=== PATIENT | male | born 1975 | race Caucasian/White ===

== ENCOUNTER 2022-10-25 13:46 | Inpatient (IN) | payer OTHER ==
[2022-10-25 14:17] VITALS: BMI 23.8
[2022-10-25] MEDS ORDERED: guaiFENesin 600 MG TABLET.ER (FP) PO PRN (18:58)
[2022-10-25] MEDS ORDERED: BISMUTH SUBSALICYLATE 524 MG/30 ML PO PRN (18:58)
[2022-10-25] MEDS ORDERED: POLYETHYLENE GLYCOL (HEALTHYLAX) 3350 17 GM PACKET PO PRN (18:58)
[2022-10-25] MEDS ORDERED: LORazepam 1 MG TABLET PO PRN (18:58)
[2022-10-25] MEDS ORDERED: ACETAMINOPHEN 325 MG TABLET (FP) PO PRN (18:58)
[2022-10-25] MEDS ORDERED: hydrOXYzine PAMOATE 25 MG CAPSULE (FP) PO PRN (18:58)
[2022-10-25] MEDS ORDERED: BENZOCAINE/MENTHOL (CHLORASEPTIC ) LOZENGE MM PRN (18:58)
[2022-10-25] MEDS ORDERED: ONDANSETRON *ODT* 4 MG TABLET SL PRN (18:58)
[2022-10-25] MEDS ORDERED: BENZONATATE 200 MG CAPSULE PO PRN (18:58)
[2022-10-25] MEDS ORDERED: NALOXONE HCL (KLOXXADO) 8 MG SPRAY NS PRN (18:58)
[2022-10-25] MEDS ORDERED: NALOXONE HCL 0.4 MG/ML VIAL IM PRN (18:58)
[2022-10-25] MEDS ORDERED: LOPERAMIDE HCL 2 MG CAPSULE PO PRN (18:58)
[2022-10-25] MEDS ORDERED: DICYCLOMINE HCL 10 MG CAPSULE PO PRN (18:58)
[2022-10-25] MEDS ORDERED: IBUPROFEN 400 MG TABLET (FP) PO PRN (18:58)
[2022-10-25] MEDS ORDERED: MAG HYDROX/AL HYDROX/SIMETH 30 ML UNIT-DOSE CUP PO PRN (18:58)
[2022-10-25] MEDS ORDERED: MAGNESIUM HYDROX 2400MG/30ML ORAL SUSPENSION 30 ML CUP PO PRN (18:58)
[2022-10-25] MEDS ORDERED: LORazepam 1 MG TABLET ONE (19:20)
[2022-10-25] MEDS: MELATONIN 5 MG TABLETS PO SCH (22:38)
[2022-10-25] MEDS: LORazepam 2 MG TABLET PO SCH (23:36)
[2022-10-25] MEDS: THIAMINE HCL 100 MG TABLET (FP) PO SCH (23:37)
[2022-10-26] MEDS: LORazepam 2 MG TABLET PO SCH ×4 (05:47→22:14)
[2022-10-26] MEDS ORDERED: methaDONE HCL 10 MG TABLET PO SCH (08:45)
[2022-10-26] MEDS ORDERED: methaDONE 40 MG, methaDONE 30 MG PO ONE (09:15)
[2022-10-26] MEDS: ASPIRIN 81 MG CHEWABLE TABLETS PO SCH (10:09)
[2022-10-26] MEDS: PRENATAL VITAMINS W/ FOLIC ACID TABLET (FP) PO SCH (10:09)
[2022-10-26] MEDS: METHOCARBAMOL 500 MG TABLET PO PRN (14:36)
[2022-10-26] MEDS: IBUPROFEN 600 MG TABLET (FP) PO PRN (14:37)
[2022-10-26] MEDS: MELATONIN 5 MG TABLETS PO SCH (22:14)
[2022-10-26] MEDS: THIAMINE HCL 100 MG TABLET (FP) PO SCH (22:14)
[2022-10-27] MEDS: methaDONE 40 MG, methaDONE 30 MG PO SCH (05:40)
[2022-10-27] MEDS: LORazepam 1 MG TABLET PO SCH ×4 (05:40→22:13)
[2022-10-27] MEDS: PRENATAL VITAMINS W/ FOLIC ACID TABLET (FP) PO SCH (10:26)
[2022-10-27] MEDS: ASPIRIN 81 MG CHEWABLE TABLETS PO SCH (10:26)
[2022-10-27] MEDS: METHOCARBAMOL 500 MG TABLET PO PRN (10:27)
[2022-10-27] MEDS: IBUPROFEN 600 MG TABLET (FP) PO PRN (17:29)
[2022-10-27] MEDS ORDERED: METHOCARBAMOL 500 MG TABLET PO PRN (19:22)
[2022-10-27] MEDS ORDERED: NAPROXEN 500 MG TABLET PO PRN (19:23)
[2022-10-27] MEDS: MIRTAZAPINE 15 MG TABLET (FP) PO SCH (22:12)
[2022-10-27] MEDS: traZODone HCL 100 MG TABLET (FP) PO SCH (22:12)
[2022-10-27] MEDS: THIAMINE HCL 100 MG TABLET (FP) PO SCH (22:12)
[2022-10-27] MEDS: SENNOSIDES 8.6MG TABLET (FP) PO SCH (22:12)
[2022-10-28] MEDS ORDERED: LORazepam 0.5 MG TABLET PO PRN
[2022-10-28] MEDS: LORazepam 0.5 MG TABLET PO SCH ×4 (05:54→22:13)
[2022-10-28] MEDS: methaDONE 40 MG, methaDONE 30 MG PO SCH (05:55)
[2022-10-28] MEDS: ASPIRIN 81 MG CHEWABLE TABLETS PO SCH (10:02)
[2022-10-28] MEDS: PRENATAL VITAMINS W/ FOLIC ACID TABLET (FP) PO SCH (10:02)
[2022-10-28] MEDS: SENNOSIDES 8.6MG TABLET (FP) PO SCH ×2 (10:04→22:13)
[2022-10-28] MEDS: MIRTAZAPINE 15 MG TABLET (FP) PO SCH (22:12)
[2022-10-28] MEDS: traZODone HCL 100 MG TABLET (FP) PO SCH (22:13)
[2022-10-28] MEDS: THIAMINE HCL 100 MG TABLET (FP) PO SCH (22:13)
[2022-10-29] MEDS ORDERED: LORazepam 0.5 MG TABLET PO ONE (05:00)
[2022-10-29] MEDS: methaDONE 40 MG, methaDONE 30 MG PO SCH (05:57)
[2022-10-29 09:45] VITALS: BP 115/79; PULSE 82; RESP 18; TEMP 97.3
[2022-10-29] MEDS: ASPIRIN 81 MG CHEWABLE TABLETS PO SCH (10:06)
[2022-10-29] MEDS: PRENATAL VITAMINS W/ FOLIC ACID TABLET (FP) PO SCH (10:06)
[2022-10-29] MEDS: SENNOSIDES 8.6MG TABLET (FP) PO SCH (10:07)
== END 2022-10-29 10:40 | disposition home or self-care (01) | DRG 773 ==
LOC: YASAS 13:46 → Y3N 19:07
PROVIDERS: ADMIT Allergy & Immunology; ATTEND Allergy & Immunology
PROC: HZ2ZZZZ Detoxification Services for Substance Abuse Treatment (ICD-10-PCS; principal; 2022-10-25)
DX: F10.230 Alcohol dependence with withdrawal, uncomplicated (principal); F11.20 Opioid dependence, uncomplicated; F19.282 Other psychoactive substance dependence with psychoactive substance-induced sleep disorder; F19.24 Other psychoactive substance dependence with psychoactive substance-induced mood disorder; F17.210 Nicotine dependence, cigarettes, uncomplicated; C81.90 Hodgkin lymphoma, unspecified, unspecified site; E78.5 Hyperlipidemia, unspecified; I10 Essential (primary) hypertension; K59.00 Constipation, unspecified; M54.50 Low back pain, unspecified; G89.29 Other chronic pain; Z56.0 Unemployment, unspecified; Z59.00 Homelessness unspecified
CPT/HCPCS: 87635

== ENCOUNTER 2023-04-12 14:44 | Inpatient (IN) | payer OTHER ==
[2023-04-12 15:15] VITALS: BMI 23.8
[2023-04-12] MEDS ORDERED: LOPERAMIDE HCL 2 MG CAPSULE PO PRN (16:45)
[2023-04-12] MEDS ORDERED: BISMUTH SUBSALICYLATE 524 MG/30 ML PO PRN (16:45)
[2023-04-12] MEDS ORDERED: DICYCLOMINE HCL 10 MG CAPSULE PO PRN (16:45)
[2023-04-12] MEDS ORDERED: BENZOCAINE/MENTHOL (CHLORASEPTIC ) LOZENGE MM PRN (16:45)
[2023-04-12] MEDS ORDERED: guaiFENesin 600 MG TABLET.ER (FP) PO PRN (16:45)
[2023-04-12] MEDS ORDERED: POLYETHYLENE GLYCOL (HEALTHYLAX) 3350 17 GM PACKET PO PRN (16:45)
[2023-04-12] MEDS ORDERED: ACETAMINOPHEN 325 MG TABLET (FP) PO PRN (16:45)
[2023-04-12] MEDS ORDERED: BENZONATATE 200 MG CAPSULE PO PRN (16:45)
[2023-04-12] MEDS ORDERED: IBUPROFEN 400 MG TABLET (FP) PO PRN (16:45)
[2023-04-12] MEDS ORDERED: NALOXONE HCL (KLOXXADO) 8 MG SPRAY NS PRN (16:45)
[2023-04-12] MEDS ORDERED: MAG HYDROX/AL HYDROX/SIMETH 30 ML UNIT-DOSE CUP PO PRN (16:45)
[2023-04-12] MEDS ORDERED: NICOTINE POLACRILEX 2 MG GUM BUC PRN (16:45)
[2023-04-12] MEDS ORDERED: MAGNESIUM HYDROX 2400MG/30ML ORAL SUSPENSION 30 ML CUP PO PRN (16:45)
[2023-04-12] MEDS ORDERED: P-EPHED 60MG/TRIPROLIDI 2.5MG TABLET PO PRN (16:45)
[2023-04-12] MEDS ORDERED: NALOXONE HCL 0.4 MG/ML VIAL IM PRN (16:45)
[2023-04-12] MEDS: hydrOXYzine PAMOATE 25 MG CAPSULE (FP) PO PRN (19:32)
[2023-04-12] MEDS ORDERED: MELATONIN 5 MG TABLETS PO SCH (22:00)
[2023-04-12] MEDS: THIAMINE HCL 100 MG TABLET (FP) PO SCH (22:37)
[2023-04-13] MEDS ORDERED: LORazepam 1 MG TABLET PO PRN (09:14)
[2023-04-13] MEDS ORDERED: cloNIDine HCL 0.1 MG TABLET PO ONE (09:35)
[2023-04-13] MEDS: ASPIRIN 81 MG CHEWABLE TABLETS PO SCH (09:38)
[2023-04-13] MEDS: PRENATAL VITAMINS W/ FOLIC ACID TABLET (FP) PO SCH (09:39)
[2023-04-13] MEDS ORDERED: methaDONE HCL 40 MG DISPERSABLE TABLET PO ONE (09:45)
[2023-04-13] MEDS: LORazepam 2 MG TABLET PO SCH ×3 (10:46→22:20)
[2023-04-13 15:31] LABS: HIV INTERPRETATION NEGATIVE (NEGATIVE)
[2023-04-13] MEDS: MIRTAZAPINE 15 MG TABLET (FP) PO SCH (22:17)
[2023-04-13] MEDS: THIAMINE HCL 100 MG TABLET (FP) PO SCH (22:17)
[2023-04-13] MEDS: traZODone HCL 100 MG TABLET (FP) PO SCH (22:17)
[2023-04-13] MEDS: IBUPROFEN 600 MG TABLET (FP) PO PRN (22:18)
[2023-04-14] MEDS: ONDANSETRON *ODT* 4 MG TABLET SL PRN (05:06)
[2023-04-14] MEDS: methaDONE HCL 40 MG DISPERSABLE TABLET PO SCH (05:07)
[2023-04-14] MEDS: LORazepam 2 MG TABLET PO SCH ×4 (05:07→23:12)
[2023-04-14] MEDS: TRIMETHOBENZAMIDE HCL 200MG/2ML INJ IM PRN (06:49)
[2023-04-14] MEDS: PRENATAL VITAMINS W/ FOLIC ACID TABLET (FP) PO SCH (10:05)
[2023-04-14] MEDS: amLODIPine BESYLATE 10 MG TABLET (FP) PO SCH (10:05)
[2023-04-14] MEDS: ASPIRIN 81 MG CHEWABLE TABLETS PO SCH (10:05)
[2023-04-14] MEDS ORDERED: TRIMETHOBENZAMIDE HCL 200MG/2ML INJ IM ONE (10:48)
[2023-04-14] MEDS ORDERED: methaDONE HCL 40 MG DISPERSABLE TABLET PO ONE (11:38)
[2023-04-14 15:25] LABS: HEMATOCRIT 30.7 % (35.4-49); HEMOGLOBIN 9.8 GM/dL (11.7-16.9); MCH 23.2 pg (25.7-33.7); MCHC 31.8 g/dl (32.0-35.9); MEAN CELL VOLUME 72.9 fl (80-96); MEAN PLT VOLUME 7.9 fl (7.5-11.1); PLATELET COUNT 613 10^3/uL (134-434); RBC 4.21 M/mm3 (4.00-5.60); RDW 20.5 % (11.9-15.9); WHITE BLOOD COUNT 8.9 K/mm3 (4.0-10.0)
[2023-04-14 15:28] LABS: POTASSIUM 5.3 mmol/L (3.5-5.1)
[2023-04-14 15:29] LABS: CALCIUM 9.2 mg/dL (8.5-10.1)
[2023-04-14 15:30] LABS: BLOOD UREA NITROGEN 22.4 mg/dL (7-18)
[2023-04-14 15:33] LABS: CREATININE 1.5 mg/dL (0.55-1.3)
[2023-04-14 15:42] LABS: MACROCYTOSIS 0
[2023-04-14 15:44] LABS: ANISOCYTOSIS 1+
[2023-04-14] MEDS: THIAMINE HCL 100 MG TABLET (FP) PO SCH (23:13)
[2023-04-14] MEDS: traZODone HCL 100 MG TABLET (FP) PO SCH (23:13)
[2023-04-14] MEDS: MIRTAZAPINE 15 MG TABLET (FP) PO SCH (23:13)
[2023-04-15] MEDS: LORazepam 1 MG TABLET PO SCH ×4 (05:24→22:12)
[2023-04-15] MEDS: methaDONE HCL 40 MG DISPERSABLE TABLET PO SCH (05:24)
[2023-04-15] MEDS ORDERED: COLLOIDAL OATMEAL 1 BAR EACH TP PRN (09:35)
[2023-04-15] MEDS: ASPIRIN 81 MG CHEWABLE TABLETS PO SCH (10:08)
[2023-04-15] MEDS: amLODIPine BESYLATE 10 MG TABLET (FP) PO SCH (10:08)
[2023-04-15] MEDS: METHOCARBAMOL 500 MG TABLET PO PRN (10:09)
[2023-04-15] MEDS: PRENATAL VITAMINS W/ FOLIC ACID TABLET (FP) PO SCH (10:09)
[2023-04-15] MEDS: hydrOXYzine PAMOATE 25 MG CAPSULE (FP) PO PRN ×2 (10:09→19:19)
[2023-04-15] MEDS: IBUPROFEN 600 MG TABLET (FP) PO PRN (19:19)
[2023-04-15] MEDS: traZODone HCL 100 MG TABLET (FP) PO SCH (22:12)
[2023-04-15] MEDS: MIRTAZAPINE 15 MG TABLET (FP) PO SCH (22:12)
[2023-04-15] MEDS: THIAMINE HCL 100 MG TABLET (FP) PO SCH (22:12)
[2023-04-16] MEDS ORDERED: LORazepam 0.5 MG TABLET PO PRN
[2023-04-16] MEDS: LORazepam 0.5 MG TABLET PO SCH ×4 (05:23→22:07)
[2023-04-16] MEDS: methaDONE HCL 40 MG DISPERSABLE TABLET PO SCH (05:23)
[2023-04-16] MEDS: PRENATAL VITAMINS W/ FOLIC ACID TABLET (FP) PO SCH (10:26)
[2023-04-16] MEDS: METHOCARBAMOL 500 MG TABLET PO PRN ×2 (10:27→22:08)
[2023-04-16] MEDS: ASPIRIN 81 MG CHEWABLE TABLETS PO SCH (10:27)
[2023-04-16] MEDS: amLODIPine BESYLATE 10 MG TABLET (FP) PO SCH (10:27)
[2023-04-16] MEDS: IBUPROFEN 600 MG TABLET (FP) PO PRN (17:00)
[2023-04-16] MEDS: THIAMINE HCL 100 MG TABLET (FP) PO SCH (22:07)
[2023-04-16] MEDS: traZODone HCL 100 MG TABLET (FP) PO SCH (22:07)
[2023-04-16] MEDS: MIRTAZAPINE 15 MG TABLET (FP) PO SCH (22:07)
[2023-04-17] MEDS: ONDANSETRON *ODT* 4 MG TABLET SL PRN (02:29)
[2023-04-17] MEDS: TRIMETHOBENZAMIDE HCL 200MG/2ML INJ IM PRN (03:30)
[2023-04-17] MEDS ORDERED: LORazepam 0.5 MG TABLET PO ONE (05:00)
[2023-04-17] MEDS: methaDONE HCL 40 MG DISPERSABLE TABLET PO SCH (05:44)
[2023-04-17 06:09] VITALS: BP 159/70; PULSE 80; RESP 17; TEMP 98
[2023-04-17] MEDS: amLODIPine BESYLATE 10 MG TABLET (FP) PO SCH (09:01)
[2023-04-17] MEDS: ASPIRIN 81 MG CHEWABLE TABLETS PO SCH (09:01)
[2023-04-17] MEDS: PRENATAL VITAMINS W/ FOLIC ACID TABLET (FP) PO SCH (09:01)
== END 2023-04-17 08:45 | disposition home or self-care (01) | DRG 773 ==
LOC: YASAS 14:44 → Y6N 17:23
PROVIDERS: ADMIT Allergy & Immunology; ATTEND Allergy & Immunology
PROC: HZ2ZZZZ Detoxification Services for Substance Abuse Treatment (ICD-10-PCS; principal; 2023-04-12)
DX: F10.230 Alcohol dependence with withdrawal, uncomplicated (principal); F11.20 Opioid dependence, uncomplicated; F14.29 Cocaine dependence with unspecified cocaine-induced disorder; F31.9 Bipolar disorder, unspecified; F19.280 Other psychoactive substance dependence with psychoactive substance-induced anxiety disorder; F19.282 Other psychoactive substance dependence with psychoactive substance-induced sleep disorder; F19.24 Other psychoactive substance dependence with psychoactive substance-induced mood disorder; C81.90 Hodgkin lymphoma, unspecified, unspecified site; E78.5 Hyperlipidemia, unspecified; I10 Essential (primary) hypertension; L25.8 Unspecified contact dermatitis due to other agents; N28.9 Disorder of kidney and ureter, unspecified; Z62.810 Personal history of physical and sexual abuse in childhood; Z63.8 Other specified problems related to primary support group; Z86.19 Personal history of other infectious and parasitic diseases; Z87.19 Personal history of other diseases of the digestive system
CPT/HCPCS: 0241U-QW; 36415; 80048; 84132; 85025; 87389; 87635; 93005; 93010; Q0162